=== PATIENT | female | born 1965 | race Hispanic/Latino ===

== ENCOUNTER 2016-09-09 22:30 | Inpatient (IN) | payer OTHER ==
[~2016-09-09] VITALS: Ht 162.6 cm; Wt 104.1 kg
[~2016-09-09 22:30] MED LIST changes: -ATIVAN2 MG PO; -ATORVASTATIN CA40 MG PO; -CARVEDILOL6.25 MG PO; -CELEXA20 MG PO; -GABAPENTIN800 MG PO; -GLUCOTROL10 MG PO; -HYDRALAZINE HCL50 MG PO; -LO-DOSE ASPIRIN81 M2 PO; -LORAZEPAM1 MG PO; -LOSARTAN POTASS50 MG PO; -NEURONTIN800 MG PO; -NIFEDIPINE ER90 MG PO; -PLAVIX75 MG PO; -PROCARDIA XL90 MG PO; -RENA-VITE RX T1 EACH PO; -RENAL-VITE TAB0.8 MG PO; -SENSIPAR; -SENSIPAR30 MG PO
[2016-09-09 23:46] LABS: MCH 27.5 PG (29.0-34.0); MCHC 30.8 G/DL (30.0-36.0); MCV 89.3 FL (83-99); MEAN PLAT.VOLUME 11.4 uM^3 (9.5-12.4); NRBC (%) 0.2 /100 WBC (0-0); PLATELET COUNT 246 K/uL (156-360); RBC DIS.WIDTH-SD 57.8 % (39-53); RED BLOOD COUNT 4.03 M/uL (3.80-5.20); WHITE BLOOD COUNT 9.2 K/uL (4.1-10.2)
[2016-09-09] MEDS ORDERED: GLUCOTROL10 MG PO (23:57)
[2016-09-09 23:58] LABS: CHLORIDE 98 mEq/L (99-109); POTASSIUM 3.6 mEq/L (3.7-5.4); SODIUM 138 mEq/L (136-147)
[2016-09-09] MEDS ORDERED: SENSIPAR (23:58)
[2016-09-09] MEDS ORDERED: PROCARDIA XL90 MG PO (23:58)
[2016-09-09] MEDS ORDERED: APRESOLINE50 MG PO (23:59)
[2016-09-09] MEDS ORDERED: RENVELA800 MG PO (23:59)
[2016-09-10] LABS: GLUCOSE 223 mg/dL (70-99)
[2016-09-10] MEDS ORDERED: RENA-VITE RX T1 EACH PO
[2016-09-10 00:01] LABS: ANION GAP 17 MEQ/L (2-14)
[2016-09-10] MEDS ORDERED: ATIVAN2 MG PO ×3 (00:01→15:35)
[2016-09-10 00:02] LABS: TOTAL BILIRUBIN 0.7 mg/dL (0.0-1.0)
[2016-09-10] MEDS ORDERED: NEURONTIN800 MG PO (00:02)
[2016-09-10] MEDS ORDERED: CELEXA20 MG PO (00:02)
[2016-09-10 00:03] LABS: ALKALINE PHOSPHATASE 506 IU/L (3-129)
[2016-09-10 00:04] LABS: GFR ESTIMATE (CALCULATED) 9 mL/min/
[2016-09-10 00:05] LABS: UREA NITROGEN (BUN) 65 mg/dL (9-23)
[2016-09-10 00:05] LABS: INTER. NORMALIZED RATIO 1.1; PROTHROMBIN TIME 11.1 (9.2-11.2)
[2016-09-10 00:07] LABS: LIPASE 26 U/L (1.0-51.0)
[2016-09-10 00:08] LABS: TROP-I INTERPRETATION NEGATIVE; TROPONIN-I 0.01 ng/mL (0.0-0.30)
[2016-09-10 03:26] LABS: BASE EXCESS -1.8 mEq/L (-3 to +3); BICARBONATE 24.3 mEq/L (22-26); CARBOXY HGB 3.7 % (0-5); COMMENTS - BLOOD GASES A+C+; DEVICE HFNC; METHEMOGLOBIN 0.9 % (0-1.5); O2 FLOW 10 L/MIN; PCO2 46 mm Hg (35-45); PO2 64 mm Hg (80-100); SITE RR; pH 7.33 (7.35-7.45)
[2016-09-10 03:27] LABS: TOTAL RESP RATE 26 resp/min
[2016-09-10 06:22] LABS: CHLORIDE 103 mEq/L (99-109); POTASSIUM 4.2 mEq/L (3.7-5.4); SODIUM 140 mEq/L (136-147)
[2016-09-10 06:23] LABS: MAGNESIUM 2.4 mg/dL (1.3-2.7)
[2016-09-10 06:25] LABS: GLUCOSE 206 mg/dL (70-99)
[2016-09-10 06:26] LABS: ANION GAP 17 MEQ/L (2-14)
[2016-09-10 06:27] LABS: TOTAL BILIRUBIN 0.8 mg/dL (0.0-1.0)
[2016-09-10 06:28] LABS: ALKALINE PHOSPHATASE 474 IU/L (3-129)
[2016-09-10 06:29] LABS: GFR ESTIMATE (CALCULATED) 9 mL/min/
[2016-09-10 06:30] LABS: UREA NITROGEN (BUN) 68 mg/dL (9-23)
[2016-09-10 06:34] LABS: TROP-I INTERPRETATION NEGATIVE; TROPONIN-I 0.07 ng/mL (0.0-0.30)
[2016-09-10 07:04] LABS: HDL CHOLESTEROL 94 MG/DL (Desirable>=50); LDL CHOLESTEROL 93 mg/dL (Desirable<100); NON-HDL CHOLESTEROL 119 mg/dL (Desirable<160); TOTAL CHOLESTEROL 213 mg/dL (Desirable<200); TRIGLYCERIDES 132 MG/DL (Normal: <150)
[2016-09-10 07:36] LABS: BASE EXCESS -2.4 mEq/L (-3 to +3); BICARBONATE 23.7 mEq/L (22-26); CARBOXY HGB 2.5 % (0-5); METHEMOGLOBIN 0.6 % (0-1.5); PCO2 46 mm Hg (35-45); PO2 167 mm Hg (80-100); pH 7.32 (7.35-7.45)
[2016-09-10 07:37] LABS: DEVICE VENT; FI02 100 %; MODE SPONT; PEEP 8 CM/H20; PRES. SUPPORT 10 CM/H2O; TOTAL RESP RATE 23 resp/min
[2016-09-10 12:17] LABS: AHBS INDEX 339.73; HBSG INDEX 0.19
[2016-09-10 12:37] LABS: HEPATITIS B SURFACE ANTIBODY REACTIVE
[2016-09-10] MEDS ORDERED: GLIPIZIDE10 MG PO (15:31)
[2016-09-10] MEDS ORDERED: NIFEDIPINE ER90 MG PO (15:31)
[2016-09-10] MEDS ORDERED: SENSIPAR30 MG PO (15:32)
[2016-09-10] MEDS ORDERED: RENVELA800 MG PO (15:32)
[2016-09-10] MEDS ORDERED: LASIX40 MG PO (15:32)
[2016-09-10] MEDS ORDERED: HYDRALAZINE HCL50 MG PO (15:32)
[2016-09-10] MEDS ORDERED: LO-DOSE ASPIRIN81 M2 PO (15:33)
[2016-09-10] MEDS ORDERED: GABAPENTIN800 MG PO (15:33)
[2016-09-10] MEDS ORDERED: PLAVIX75 MG PO ×2 (15:33)
[2016-09-10] MEDS ORDERED: RENAL-VITE TAB0.8 MG PO (15:33)
[2016-09-10] MEDS ORDERED: CITALOPRAM HBR20 MG PO (15:33)
[2016-09-10] MEDS ORDERED: LORAZEPAM1 MG PO (15:35)
[2016-09-10 17:45] LABS: BASOPHIL COUNT 0.1 K/uL (0-0.1); EOSINOPHIL (%) 1.1 % (0-5); EOSINOPHIL COUNT 0.1 K/uL (0-0.3); HEMATOCRIT 36.6 % (36.0-46.0); IMMATURE GRANULOCYTE (%) 0.3 % (0.0-0.7); INSTRUMENT ABS NEUTROPHIL CT 8.5 K/uL; LYMPHOCYTE COUNT 0.7 K/uL (1.0-2.8); MCH 27.8 PG (29.0-34.0); MCHC 30.9 G/DL (30.0-36.0); MCV 90.1 FL (83-99); MONOCYTE (%) 5.8 % (3-12); MONOCYTE COUNT 0.6 K/uL (0-0.8); NEUTROPHIL (%) 85.4 % (45-76); NEUTROPHIL COUNT 8.5 K/uL (1.8-6.4); PLATELET COUNT 256 K/uL (156-360); RBC DIS.WIDTH-CV 18.1 % (11.8-14.6); RBC DIS.WIDTH-SD 59.1 % (39-53); RED BLOOD COUNT 4.06 M/uL (3.80-5.20); WHITE BLOOD COUNT 9.9 K/uL (4.1-10.2)
[2016-09-10 18:06] LABS: TROP-I INTERPRETATION NEGATIVE; TROPONIN-I 0.13 ng/mL (0.0-0.30)
[2016-09-10 18:50] VITALS: BP 174/84
[2016-09-10 19:00] VITALS: BP 157/75
[2016-09-10 20:00] VITALS: BP 163/108
[2016-09-10 20:43] LABS: METH RESISTANT S AUREUS PCR NEGATIVE (NEGATIVE)
[2016-09-10 20:45] LABS: POINT-OF-CARE METER ID UU14174217
[2016-09-10 20:47] LABS: PROBE CHECK PASS; SPECIMEN PROCESSING CONTROL PASS
[2016-09-10 21:00] VITALS: BP 159/70
[2016-09-10 22:00] VITALS: BP 158/64
[2016-09-11] VITALS (7 sets, daily range): BP systolic 119–168; BP diastolic 49–84
[2016-09-11 01:28] LABS: POINT-OF-CARE METER ID UU13113748
[2016-09-11 06:29] LABS: EOSINOPHIL (%) 0 % (0-5); HEMATOCRIT 34.8 % (36.0-46.0); IMMATURE GRANULOCYTE (%) 0.8 % (0.0-0.7); IMMATURE GRANULOCYTE COUNT 0.1 K/uL; INSTRUMENT ABS NEUTROPHIL CT 7.3 K/uL; LYMPHOCYTE COUNT 0.4 K/uL (1.0-2.8); MCH 27.9 PG (29.0-34.0); MCHC 30.7 G/DL (30.0-36.0); MCV 90.6 FL (83-99); MEAN PLAT.VOLUME 11.8 uM^3 (9.5-12.4); MONOCYTE (%) 1.9 % (3-12); MONOCYTE COUNT 0.2 K/uL (0-0.8); NEUTROPHIL (%) 92.8 % (45-76); NEUTROPHIL COUNT 7.3 K/uL (1.8-6.4); PLATELET COUNT 250 K/uL (156-360); RBC DIS.WIDTH-CV 17.9 % (11.8-14.6); RBC DIS.WIDTH-SD 58.5 % (39-53); RED BLOOD COUNT 3.84 M/uL (3.80-5.20); WHITE BLOOD COUNT 7.9 K/uL (4.1-10.2)
[2016-09-11 06:37] LABS: POINT-OF-CARE METER ID UU13113731
[2016-09-11 06:51] LABS: ANION GAP 15 MEQ/L (2-14); CHLORIDE 98 MEQ/L (99-109); GFR ESTIMATE (CALCULATED) 12 mL/min/; GLUCOSE 290 mg/dL (70-99); MAGNESIUM 2.2 mg/dl (1.3-2.7); POTASSIUM 4.9 MEQ/L (3.7-5.4); SAMPLE HEMOLYSIS CHECK 0; SAMPLE ICTERIC CHECK 0; SAMPLE LIPEMIA CHECK 0; SODIUM 139 MEQ/L (136-147); UREA NITROGEN (BUN) 44 mg/dL (9-23)
[2016-09-12] VITALS: BP 146/75
[2016-09-12 03:52] VITALS: BP 136/71
[2016-09-12 06:22] LABS: EOSINOPHIL (%) 0 % (0-5); HEMATOCRIT 33.6 % (36.0-46.0); IMMATURE GRANULOCYTE (%) 0.4 % (0.0-0.7); INSTRUMENT ABS NEUTROPHIL CT 6.3 K/uL; LYMPHOCYTE COUNT 0.3 K/uL (1.0-2.8); MCH 27.7 PG (29.0-34.0); MCV 89.4 FL (83-99); MEAN PLAT.VOLUME 11.8 uM^3 (9.5-12.4); MONOCYTE (%) 4.4 % (3-12); MONOCYTE COUNT 0.3 K/uL (0-0.8); NEUTROPHIL (%) 90.7 % (45-76); NEUTROPHIL COUNT 6.3 K/uL (1.8-6.4); PLATELET COUNT 215 K/uL (156-360); RBC DIS.WIDTH-CV 17.5 % (11.8-14.6); RBC DIS.WIDTH-SD 56.9 % (39-53); RED BLOOD COUNT 3.76 M/uL (3.80-5.20)
[2016-09-12 06:55] LABS: ANION GAP 16 MEQ/L (2-14); CHLORIDE 93 MEQ/L (99-109); MAGNESIUM 2.4 mg/dl (1.3-2.7); POTASSIUM 5.7 MEQ/L (3.7-5.4); SAMPLE HEMOLYSIS CHECK 0; SAMPLE ICTERIC CHECK 0; SAMPLE LIPEMIA CHECK 0
[2016-09-12 06:57] LABS: GLUCOSE 416 mg/dL (70-99)
[2016-09-12 07:02] LABS: GFR ESTIMATE (CALCULATED) 8 mL/min/; SODIUM 132 MEQ/L (136-147); UREA NITROGEN (BUN) 75 mg/dL (9-23)
[2016-09-12 08:08] VITALS: BP 132/61
[2016-09-12 09:40] LABS: POINT-OF-CARE METER ID UU13113731
[2016-09-12 16:07] VITALS: BP 149/69
[2016-09-12 19:45] VITALS: BP 135/66
[2016-09-13 00:02] VITALS: BP 142/65
[2016-09-13 03:30] VITALS: BP 133/71
[2016-09-13 05:32] LABS: EOSINOPHIL (%) 0.1 % (0-5); HEMATOCRIT 34.1 % (36.0-46.0); IMMATURE GRANULOCYTE (%) 0.4 % (0.0-0.7); INSTRUMENT ABS NEUTROPHIL CT 5.7 K/uL; LYMPHOCYTE COUNT 0.8 K/uL (1.0-2.8); MCH 27.4 PG (29.0-34.0); MCHC 31.4 G/DL (30.0-36.0); MCV 87.2 FL (83-99); MONOCYTE (%) 8.3 % (3-12); MONOCYTE COUNT 0.6 K/uL (0-0.8); NEUTROPHIL (%) 79.9 % (45-76); NEUTROPHIL COUNT 5.7 K/uL (1.8-6.4); PLATELET COUNT 221 K/uL (156-360); RBC DIS.WIDTH-CV 17.2 % (11.8-14.6); RBC DIS.WIDTH-SD 54.4 % (39-53); RED BLOOD COUNT 3.91 M/uL (3.80-5.20); WHITE BLOOD COUNT 7.2 K/uL (4.1-10.2)
[2016-09-13 06:00] LABS: ANION GAP 15 MEQ/L (2-14); CHLORIDE 92 MEQ/L (99-109); GFR ESTIMATE (CALCULATED) 13 mL/min/; GLUCOSE 190 mg/dL (70-99); POTASSIUM 4.1 MEQ/L (3.7-5.4); SAMPLE HEMOLYSIS CHECK 0; SAMPLE ICTERIC CHECK 0; SAMPLE LIPEMIA CHECK 0; SODIUM 135 MEQ/L (136-147); UREA NITROGEN (BUN) 48 mg/dL (9-23)
[2016-09-13 08:11] VITALS: BP 187/87
[2016-09-13] MEDS ORDERED: NICOTINE PATCH1 EAC2 TD (11:11)
[2016-09-13] MEDS ORDERED: CARVEDILOL6.25 MG PO (11:12)
[2016-09-13] MEDS ORDERED: ATORVASTATIN CA40 MG PO (11:12)
[2016-09-13] MEDS ORDERED: LOSARTAN POTASS50 MG PO (11:12)
[2016-09-13] MEDS ORDERED: LASIX40 MG PO (11:13)
== END 2016-09-13 12:46 | disposition home or self-care (01) | DRG 190 ==
LOC: EME 22:30 → EDOF 09-10 02:38 → 4WEST 09-10 03:40 → EDOF 09-10 14:51 → 4WEST 09-10 18:24 → 5SOUTH 09-11 14:29
PROVIDERS: Emergency Medicine; Hospitalist; Internal Medicine Nephrology; Physician Assistant Medical
PROC: 5A1D60Z (ICD-10-PCS; principal; 2016-09-10)
DX: J44.0 Chronic obstructive pulmonary disease with (acute) lower respiratory infection (principal); J96.01 Acute respiratory failure with hypoxia; I50.33 Acute on chronic diastolic (congestive) heart failure; I27.2 Other secondary pulmonary hypertension; J18.9 Pneumonia, unspecified organism; N18.6 End stage renal disease; I31.3 Pericardial effusion (noninflammatory); E11.22 Type 2 diabetes mellitus with diabetic chronic kidney disease; E11.65 Type 2 diabetes mellitus with hyperglycemia; I15.0 Renovascular hypertension; D63.1 Anemia in chronic kidney disease; I13.2 Hypertensive heart and chronic kidney disease with heart failure and with stage 5 chronic kidney disease, or end stage renal disease; E66.01 Morbid (severe) obesity due to excess calories; E78.5 Hyperlipidemia, unspecified; E87.5 Hyperkalemia; F17.218 Nicotine dependence, cigarettes, with other nicotine-induced disorders; F41.9 Anxiety disorder, unspecified; I08.1 Rheumatic disorders of both mitral and tricuspid valves; I16.1 Hypertensive emergency; I25.10 Atherosclerotic heart disease of native coronary artery without angina pectoris; I25.2 Old myocardial infarction; I70.0 Atherosclerosis of aorta; R16.0 Hepatomegaly, not elsewhere classified; J44.1 Chronic obstructive pulmonary disease with (acute) exacerbation; K21.9 Gastro-esophageal reflux disease without esophagitis; K44.9 Diaphragmatic hernia without obstruction or gangrene; M19.90 Unspecified osteoarthritis, unspecified site; N25.81 Secondary hyperparathyroidism of renal origin; N28.1 Cyst of kidney, acquired; T38.0X5A Adverse effect of glucocorticoids and synthetic analogues, initial encounter; Z68.41 Body mass index [BMI] 40.0-44.9, adult; Z79.4 Long term (current) use of insulin; Z82.49 Family history of ischemic heart disease and other diseases of the circulatory system; Z83.3 Family history of diabetes mellitus; Z95.5 Presence of coronary angioplasty implant and graft; Z99.2 Dependence on renal dialysis; I16.0 Hypertensive urgency; J96.22 Acute and chronic respiratory failure with hypercapnia; E83.39 Other disorders of phosphorus metabolism; E11.69 Type 2 diabetes mellitus with other specified complication
CPT/HCPCS: 36600; 71010; 71275; 80048; 80053; 80061; 82565; 82803; 82948; 83605; 83690; 83735; 83880; 84100; 84484; 84520; 85025; 85027; 85610; 85730; 86706; 87040; 87340; 87641; 93005; 93306; 94002; 94640; 94640 76; 94760; 94799; 99202; 99281; 99285; J0360; J0456; J0696; J0881; J1270; J1644; J1815; J1940; J2920; J2930; J7050; J7512

== ENCOUNTER → 2016-09-09 | Outpatient (CLI) | payer OTHER ==
[~2016-09-09] MED LIST: APRESOLINE50 MG PO; ASPIR-LOW81 MG PO; ATIVAN2 MG PO; ATORVASTATIN CA20 MG PO; ATORVASTATIN CA40 MG PO; CARVEDILOL6.25 MG PO; CELEXA20 MG PO; CITALOPRAM HBR20 MG PO; CLONAZEPAM1 MG PO; CLOPIDOGREL75 MG PO; GABAPENTIN800 MG PO; GLIPIZIDE10 MG PO; GLUCOTROL10 MG PO; HUMALOG100 UNIT/1 SC; HUMULIN 70100 UNIT/2 SC; HYDRALAZINE HCL50 MG PO; LANSOPRAZOLE30 MG PO; LASIX40 MG PO; LO-DOSE ASPIRIN81 M2 PO; LORAZEPAM1 MG PO; LOSARTAN POTASS50 MG PO; METOPROLOL TART50 MG PO; NEURONTIN800 MG PO; NICOTINE PATCH1 EAC2 TD; NIFEDIPINE ER90 MG PO; NITROSTAT0.4 MG SL; PHENYTOIN SODI100 M1 PO; PLAVIX75 MG PO; PRAVASTATIN SOD80 MG PO; PROCARDIA XL90 MG PO; PROVENTIL,2.5 MG/3 M IH; RANITIDINE HCL300 MG PO; RENA-VITE RX T1 EACH PO; RENAL-VITE TAB0.8 MG PO; RENVELA800 MG PO; ROBITUSSIN DM118 ML PO; SENSIPAR; SENSIPAR30 MG PO; Sodium Bicarbonate PO; TYLENOL EXTRA500 MG PO
== END | disposition home or self-care (01) ==
LOC: RES 12:11
DX: J98.4 Other disorders of lung (principal); R94.2 Abnormal results of pulmonary function studies
CPT/HCPCS: 94060; 94727; 94729

== ENCOUNTER 2016-11-01 05:34 | Day surgery (SDC) | payer OTHER ==
[~2016-11-01] VITALS: Ht 162.6 cm; Wt 104.3 kg
[~2016-11-01 05:34] MED LIST changes: +ATIVAN2 MG PO; +ATORVASTATIN CA40 MG PO; +CARVEDILOL6.25 MG PO; +CELEXA20 MG PO; +CHANTIX0.5 MG PO; +GABAPENTIN800 MG PO; +GLUCOTROL10 MG PO; +HYDRALAZINE HCL50 MG PO; +LO-DOSE ASPIRIN81 M2 PO; +LORAZEPAM1 MG PO; +LOSARTAN POTASS50 MG PO; +NEURONTIN800 MG PO; +NIFEDIPINE ER90 MG PO; +PLAVIX75 MG PO; +PROCARDIA XL90 MG PO; +RENA-VITE RX T1 EACH PO; +RENAL-VITE TAB0.8 MG PO; +SENSIPAR; +SENSIPAR30 MG PO
[2016-11-01 06:23] LABS: HEMATOCRIT 38.4 % (36.0-46.0); MCH 26.9 PG (29.0-34.0); MCHC 31.8 G/DL (30.0-36.0); MCV 84.8 FL (83-99); MEAN PLAT.VOLUME 11.8 uM^3 (9.5-12.4); PLATELET COUNT 205 K/uL (156-360); RBC DIS.WIDTH-SD 49.1 % (39-53); RED BLOOD COUNT 4.53 M/uL (3.80-5.20); WHITE BLOOD COUNT 6.5 K/uL (4.1-10.2)
[2016-11-01 06:29] VITALS: BP 170/79
[2016-11-01 06:44] LABS: ANION GAP 12 MEQ/L (2-14); CHLORIDE 97 MEQ/L (99-109); POTASSIUM 4.5 MEQ/L (3.7-5.4); SAMPLE HEMOLYSIS CHECK 1; SAMPLE ICTERIC CHECK 0; SAMPLE LIPEMIA CHECK 0; SODIUM 138 MEQ/L (136-147)
[2016-11-01 06:49] LABS: GFR ESTIMATE (CALCULATED) 13 mL/min/; GLUCOSE 109 mg/dL (70-99); UREA NITROGEN (BUN) 36 mg/dL (9-23)
[2016-11-01 08:57] LABS: POINT-OF-CARE METER ID UU13113675
[2016-11-01 10:00] VITALS: BP 163/79
[2016-11-01 10:44] VITALS: BP 142/70
== END 2016-11-01 10:49 | disposition home or self-care (01) ==
LOC: SDC 05:34
PROVIDERS: Surgery
DX: T82.858A Stenosis of other vascular prosthetic devices, implants and grafts, initial encounter (principal); I12.9 Hypertensive chronic kidney disease with stage 1 through stage 4 chronic kidney disease, or unspecified chronic kidney disease; E11.22 Type 2 diabetes mellitus with diabetic chronic kidney disease; N18.9 Chronic kidney disease, unspecified; Z99.2 Dependence on renal dialysis; I25.2 Old myocardial infarction; Z79.4 Long term (current) use of insulin; M19.90 Unspecified osteoarthritis, unspecified site; Z79.82 Long term (current) use of aspirin; Z79.84 Long term (current) use of oral hypoglycemic drugs; F17.200 Nicotine dependence, unspecified, uncomplicated; E66.9 Obesity, unspecified; Z68.34 Body mass index [BMI] 34.0-34.9, adult
CPT/HCPCS: 80048; 82948; 85027; C1725; C1769; C1887; C1894; J0690; J1644; J2250; J2405; J3010

== ENCOUNTER 2017-02-04 15:07 | Inpatient (IN) | payer OTHER ==
[~2017-02-04] VITALS: Ht 162.6 cm; Wt 99.9 kg
[2017-02-04 15:46] LABS: HEMATOCRIT 23.5 % (36.0-46.0); MCH 27.5 PG (29.0-34.0); MCHC 31.1 G/DL (30.0-36.0); MCV 88.7 FL (83-99); MEAN PLAT.VOLUME 9.8 uM^3 (9.5-12.4); PLATELET COUNT 269 K/uL (156-360); RBC DIS.WIDTH-CV 19.8 % (11.8-14.6); RBC DIS.WIDTH-SD 63.4 % (39-53); RED BLOOD COUNT 2.65 M/uL (3.80-5.20); WHITE BLOOD COUNT 11.6 K/uL (4.1-10.2)
[2017-02-04 15:54] LABS: CHLORIDE 92 mEq/L (99-109); POTASSIUM 4.1 mEq/L (3.7-5.4); SODIUM 141 mEq/L (136-147)
[2017-02-04 15:56] LABS: GLUCOSE 294 mg/dL (70-99)
[2017-02-04 15:57] LABS: ANION GAP 15 MEQ/L (2-14)
[2017-02-04 15:59] LABS: GFR ESTIMATE (CALCULATED) 16 mL/min/
[2017-02-04 16:00] LABS: UREA NITROGEN (BUN) 28 mg/dL (9-23)
[2017-02-04 16:06] LABS: TROP-I INTERPRETATION NEGATIVE; TROPONIN-I 0.02 ng/mL (0.0-0.30)
[2017-02-04] MEDS ORDERED: CHANTIX1 MG PO (17:38)
[2017-02-04] MEDS ORDERED: LIPITOR80 MG PO (17:39)
[2017-02-04] MEDS ORDERED: RENAL-VITE TAB0.8 MG PO (17:41)
[2017-02-04] MEDS ORDERED: FUROSEMIDE40 MG PO (17:41)
[2017-02-04] MEDS ORDERED: COREG12.5 M1 PO (17:41)
[2017-02-04] MEDS ORDERED: SENSIPAR60 MG PO (17:42)
[2017-02-04] MEDS ORDERED: LASIX40 MG PO (17:42)
[2017-02-04] MEDS ORDERED: PROAIR HFA8.5 GM IH (17:42)
[2017-02-04] MEDS ORDERED: TRESIBA FL200 UNIT/1 SC (17:43)
[2017-02-04] MEDS ORDERED: BUPROPION HCL150 M2 PO (17:43)
[2017-02-04] MEDS ORDERED: NICODERM CQ1 EAC1 TD (17:45)
[2017-02-04] MEDS ORDERED: HUMALOG100 UNIT/1 SC (17:45)
[2017-02-04 19:35] VITALS: BP 132/65
[2017-02-04 20:43] LABS: POINT-OF-CARE METER ID UU14208750
[2017-02-04 22:07] LABS: TROP-I INTERPRETATION NEGATIVE; TROPONIN-I 0.14 ng/mL (0.0-0.30)
[2017-02-04 23:22] VITALS: BP 128/62
[2017-02-05] VITALS (7 sets, daily range): BP systolic 105–155; BP diastolic 51–72
[2017-02-05 04:28] LABS: HEMATOCRIT 22.5 % (36.0-46.0); MCH 27.8 PG (29.0-34.0); MCHC 31.1 G/DL (30.0-36.0); MCV 89.3 FL (83-99); MEAN PLAT.VOLUME 10.8 uM^3 (9.5-12.4); NRBC (%) 0.1 /100 WBC (0-0); PLATELET COUNT 284 K/uL (156-360); RBC DIS.WIDTH-CV 19.7 % (11.8-14.6); RBC DIS.WIDTH-SD 63.5 % (39-53); RED BLOOD COUNT 2.52 M/uL (3.80-5.20); WHITE BLOOD COUNT 16.4 K/uL (4.1-10.2)
[2017-02-05 04:52] LABS: CHLORIDE 90 mEq/L (99-109); SODIUM 137 mEq/L (136-147)
[2017-02-05 04:53] LABS: TROP-I INTERPRETATION NEGATIVE; TROPONIN-I 0.26 ng/mL (0.0-0.30)
[2017-02-05 04:54] LABS: GLUCOSE 311 mg/dL (70-99); POTASSIUM 5.1 mEq/L (3.7-5.4)
[2017-02-05 04:55] LABS: ANION GAP 18 MEQ/L (2-14)
[2017-02-05 04:58] LABS: GFR ESTIMATE (CALCULATED) 12 mL/min/
[2017-02-05 05:04] LABS: UREA NITROGEN (BUN) 44 mg/dL (9-23)
[2017-02-05 06:36] LABS: POINT-OF-CARE METER ID UU14208750
[2017-02-05 07:16] LABS: Estimated Average Glucose 220 mg/dL (70-123); HEMOGLOBIN A1c (GLYCOHEMOGLOB) 9.3 % HGB (Below 5.7)
[2017-02-05 16:00] LABS: POINT-OF-CARE METER ID UU14208750
[2017-02-05 16:51] LABS: IRON 27 MCG/DL (35-150)
[2017-02-05 18:28] LABS: BASE EXCESS 3.3 mEq/L (-3 to +3); BICARBONATE 27.9 mEq/L (22-26); CARBOXY HGB 2.1 % (0-5); METHEMOGLOBIN 1.4 % (0-1.5); PCO2 42 mm Hg (35-45); PO2 49 mm Hg (80-100); SITE RB; pH 7.43 (7.35-7.45)
[2017-02-05 18:34] LABS: DEVICE HFNC; O2 FLOW 15 L/MIN
[2017-02-05 18:35] LABS: TOTAL RESP RATE 22 resp/min
[2017-02-05 19:17] LABS: COMMENTS - BLOOD GASES C+
[2017-02-05 19:32] LABS: TROP-I INTERPRETATION NEGATIVE; TROPONIN-I 0.21 ng/mL (0.0-0.30)
[2017-02-06] VITALS (7 sets, daily range): BP systolic 110–127; BP diastolic 55–60
[2017-02-06 06:41] LABS: POINT-OF-CARE METER ID UU14208750
[2017-02-06 07:02] LABS: MCH 27.5 PG (29.0-34.0); MCHC 30.6 G/DL (30.0-36.0); MEAN PLAT.VOLUME 10.9 uM^3 (9.5-12.4); NRBC (%) 0.2 /100 WBC (0-0); PLATELET COUNT 257 K/uL (156-360); RBC DIS.WIDTH-CV 19.8 % (11.8-14.6); RBC DIS.WIDTH-SD 64.1 % (39-53); WHITE BLOOD COUNT 11.4 K/uL (4.1-10.2)
[2017-02-06 07:23] LABS: TROP-I INTERPRETATION NEGATIVE; TROPONIN-I 0.16 ng/mL (0.0-0.30)
[2017-02-06 07:48] LABS: ANION GAP 14 MEQ/L (2-14); CHLORIDE 87 MEQ/L (99-109); GLUCOSE 325 mg/dL (70-99); SAMPLE HEMOLYSIS CHECK 0; SAMPLE ICTERIC CHECK 0; SAMPLE LIPEMIA CHECK 0; VANCOMYCIN, TROUGH 21.8 MCG/ML (10-20)
[2017-02-06 07:55] LABS: UREA NITROGEN (BUN) 89 mg/dL (9-23)
[2017-02-06 07:56] LABS: GFR ESTIMATE (CALCULATED) 8 mL/min/; POTASSIUM 6.7 MEQ/L (3.7-5.4); SODIUM 128 MEQ/L (136-147)
[2017-02-06 08:29] LABS: INTERNAL CONTROL VALID? YES
[2017-02-06 09:27] LABS: IMM.RETIC FRACTION 38.4 % (3-19); RETIC HGB EQUIVALENT 25.2 (28-36); RETICULOCYTE COUNT 6.4 % (0.5-1.8)
[2017-02-06 10:15] LABS: POINT-OF-CARE METER ID UU14208750
[2017-02-06 10:15] LABS: POINT-OF-CARE METER ID UU14208750
[2017-02-06 11:18] LABS: IRON 127 MCG/DL (35-150)
[2017-02-06 11:41] LABS: POINT-OF-CARE METER ID UU14208750
[2017-02-06 12:54] LABS: FERRITIN 885 NG/ML (10-291); LACTATE DEHYDROGENASE 171 IU/L (20-246)
[2017-02-06 18:19] LABS: POINT-OF-CARE METER ID UU14208750
[2017-02-06 19:25] LABS: ALKALINE PHOSPHATASE 154 IU/L (3-129); ANION GAP 15 MEQ/L (2-14); CHLORIDE 94 MEQ/L (99-109); GLUCOSE 238 mg/dL (70-99); SAMPLE HEMOLYSIS CHECK 0; SAMPLE ICTERIC CHECK 0; SAMPLE LIPEMIA CHECK 0; TOTAL BILIRUBIN 0.9 MG/DL (0.0-1.0)
[2017-02-06 19:28] LABS: EOSINOPHIL (%) 0 % (0-5); HEMATOCRIT 25.1 % (36.0-46.0); IMMATURE GRANULOCYTE (%) 0.9 % (0.0-0.7); IMMATURE GRANULOCYTE COUNT 0.1 K/uL; INSTRUMENT ABS NEUTROPHIL CT 10.1 K/uL; LYMPHOCYTE COUNT 0.4 K/uL (1.0-2.8); MCH 27.9 PG (29.0-34.0); MCHC 32.3 G/DL (30.0-36.0); MCV 86.6 FL (83-99); MEAN PLAT.VOLUME 10.9 uM^3 (9.5-12.4); MONOCYTE (%) 3.6 % (3-12); MONOCYTE COUNT 0.4 K/uL (0-0.8); NEUTROPHIL (%) 91.6 % (45-76); NEUTROPHIL COUNT 10.1 K/uL (1.8-6.4); NRBC (%) 0.8 /100 WBC (0-0); PLATELET COUNT 273 K/uL (156-360); RBC DIS.WIDTH-CV 18.6 % (11.8-14.6); RBC DIS.WIDTH-SD 57.2 % (39-53)
[2017-02-06 19:31] LABS: GFR ESTIMATE (CALCULATED) 19 mL/min/; POTASSIUM 3.8 MEQ/L (3.7-5.4); SODIUM 136 MEQ/L (136-147); UREA NITROGEN (BUN) 35 mg/dL (9-23)
[2017-02-06 21:30] LABS: POINT-OF-CARE METER ID UU14162508
[2017-02-07 03:28] VITALS: BP 124/63
[2017-02-07 06:42] LABS: EOSINOPHIL (%) 0 % (0-5); HEMATOCRIT 25.3 % (36.0-46.0); IMMATURE GRANULOCYTE (%) 1.3 % (0.0-0.7); IMMATURE GRANULOCYTE COUNT 0.2 K/uL; INSTRUMENT ABS NEUTROPHIL CT 11.2 K/uL; LYMPHOCYTE COUNT 0.7 K/uL (1.0-2.8); MCH 27.1 PG (29.0-34.0); MCHC 31.2 G/DL (30.0-36.0); MCV 86.9 FL (83-99); MEAN PLAT.VOLUME 10.8 uM^3 (9.5-12.4); MONOCYTE (%) 5.8 % (3-12); MONOCYTE COUNT 0.7 K/uL (0-0.8); NEUTROPHIL COUNT 11.2 K/uL (1.8-6.4); NRBC (%) 1.3 /100 WBC (0-0); PLATELET COUNT 271 K/uL (156-360); RBC DIS.WIDTH-CV 19.3 % (11.8-14.6); RBC DIS.WIDTH-SD 58.9 % (39-53); RED BLOOD COUNT 2.91 M/uL (3.80-5.20); WHITE BLOOD COUNT 12.8 K/uL (4.1-10.2)
[2017-02-07 06:58] LABS: POINT-OF-CARE METER ID UU14162508
[2017-02-07 07:14] LABS: ANION GAP 15 MEQ/L (2-14); CHLORIDE 94 MEQ/L (99-109); GLUCOSE 156 mg/dL (70-99); SAMPLE HEMOLYSIS CHECK 0; SAMPLE ICTERIC CHECK 0; SAMPLE LIPEMIA CHECK 0; SODIUM 136 MEQ/L (136-147); UREA NITROGEN (BUN) 50 mg/dL (9-23)
[2017-02-07 07:15] LABS: GFR ESTIMATE (CALCULATED) 12 mL/min/; POTASSIUM 4.6 MEQ/L (3.7-5.4)
[2017-02-07 07:22] VITALS: BP 124/71
[2017-02-07 11:58] VITALS: BP 132/77
[2017-02-07 12:29] LABS: POINT-OF-CARE METER ID UU14162508
[2017-02-07 15:40] VITALS: BP 134/69
[2017-02-07 17:08] LABS: POINT-OF-CARE METER ID UU14162508
[2017-02-07 19:00] VITALS: BP 143/66
[2017-02-08 00:04] VITALS: BP 122/85
[2017-02-08 01:31] LABS: POINT-OF-CARE METER ID UU14162508; POINT-OF-CARE USER ID AHSUCEG
[2017-02-08 04:00] VITALS: BP 125/74
[2017-02-08 07:26] LABS: EOSINOPHIL (%) 0 % (0-5); HEMATOCRIT 25.3 % (36.0-46.0); IMMATURE GRANULOCYTE COUNT 0.2 K/uL; INSTRUMENT ABS NEUTROPHIL CT 9.6 K/uL; LYMPHOCYTE COUNT 1.1 K/uL (1.0-2.8); MCHC 31.6 G/DL (30.0-36.0); MCV 88.5 FL (83-99); MEAN PLAT.VOLUME 10.8 uM^3 (9.5-12.4); MONOCYTE (%) 10.9 % (3-12); MONOCYTE COUNT 1.3 K/uL (0-0.8); NEUTROPHIL (%) 78.2 % (45-76); NEUTROPHIL COUNT 9.6 K/uL (1.8-6.4); PLATELET COUNT 276 K/uL (156-360); RBC DIS.WIDTH-CV 19.5 % (11.8-14.6); RBC DIS.WIDTH-SD 59.9 % (39-53); RED BLOOD COUNT 2.86 M/uL (3.80-5.20); WHITE BLOOD COUNT 12.3 K/uL (4.1-10.2)
[2017-02-08 07:30] VITALS: BP 105/59
[2017-02-08 07:56] LABS: ANION GAP 19 MEQ/L (2-14); CHLORIDE 89 MEQ/L (99-109); GFR ESTIMATE (CALCULATED) 8 mL/min/; GLUCOSE 324 mg/dL (70-99); POTASSIUM 4.8 MEQ/L (3.7-5.4); SAMPLE HEMOLYSIS CHECK 0; SAMPLE ICTERIC CHECK 0; SAMPLE LIPEMIA CHECK 0; SODIUM 130 MEQ/L (136-147); UREA NITROGEN (BUN) 83 mg/dL (9-23); VANCOMYCIN, TROUGH 12.7 MCG/ML (10-20)
[2017-02-08 14:30] LABS: POINT-OF-CARE METER ID UU14162508
[2017-02-08 15:21] LABS: POINT-OF-CARE METER ID UU14162508
[2017-02-08 16:00] VITALS: BP 132/64
[2017-02-08 19:58] VITALS: BP 132/65
[2017-02-08 21:19] LABS: POINT-OF-CARE METER ID UU14314084
[2017-02-09 00:12] VITALS: BP 127/58
[2017-02-09 07:05] LABS: POINT-OF-CARE METER ID UU14314084
[2017-02-09 08:00] VITALS: BP 135/60
[2017-02-09 11:58] LABS: POINT-OF-CARE METER ID UU14208750
[2017-02-09 12:27] VITALS: BP 148/70
[2017-02-09 16:05] VITALS: BP 178/77
[2017-02-09 16:38] LABS: ANION GAP 13 MEQ/L (2-14); CHLORIDE 90 MEQ/L (99-109); POTASSIUM 5.3 MEQ/L (3.7-5.4); SAMPLE HEMOLYSIS CHECK 0; SAMPLE ICTERIC CHECK 0; SAMPLE LIPEMIA CHECK 1; SODIUM 128 MEQ/L (136-147)
[2017-02-09 17:00] LABS: GFR ESTIMATE (CALCULATED) 9 mL/min/; UREA NITROGEN (BUN) 71 mg/dL (9-23)
[2017-02-09 17:01] LABS: GLUCOSE 607 mg/dL (70-99)
[2017-02-09 20:09] VITALS: BP 159/73
[2017-02-09 23:06] LABS: POINT-OF-CARE METER ID UU14314084
[2017-02-09 23:35] VITALS: BP 145/65
[2017-02-10 03:44] LABS: POINT-OF-CARE METER ID UU14162508
[2017-02-10 04:18] VITALS: BP 135/60
[2017-02-10 06:36] LABS: POINT-OF-CARE METER ID UU14162508
[2017-02-10 07:06] LABS: HEMATOCRIT 28.1 % (36.0-46.0); MCH 27.9 PG (29.0-34.0); MCHC 31.3 G/DL (30.0-36.0); MCV 89.2 FL (83-99); MEAN PLAT.VOLUME 10.7 uM^3 (9.5-12.4); NRBC (%) 2.4 /100 WBC (0-0); PLATELET COUNT 356 K/uL (156-360); RBC DIS.WIDTH-CV 18.9 % (11.8-14.6); RBC DIS.WIDTH-SD 57.1 % (39-53); RED BLOOD COUNT 3.15 M/uL (3.80-5.20); WHITE BLOOD COUNT 14.7 K/uL (4.1-10.2)
[2017-02-10 07:33] LABS: ANION GAP 14 MEQ/L (2-14); CHLORIDE 96 MEQ/L (99-109); GFR ESTIMATE (CALCULATED) 8 mL/min/; POTASSIUM 4.4 MEQ/L (3.7-5.4); SAMPLE HEMOLYSIS CHECK 0; SAMPLE ICTERIC CHECK 0; SAMPLE LIPEMIA CHECK 0; UREA NITROGEN (BUN) 87 mg/dL (9-23)
[2017-02-10 07:41] LABS: GLUCOSE 118 mg/dL (70-99); SODIUM 136 MEQ/L (136-147)
[2017-02-10 07:45] VITALS: BP 152/69
[2017-02-10 11:46] LABS: POINT-OF-CARE METER ID UU14162508
[2017-02-10 11:55] LABS: POINT-OF-CARE METER ID UU14162508
[2017-02-10 12:05] VITALS: BP 123/60
[2017-02-10 15:54] VITALS: BP 150/72
[2017-02-10 16:42] LABS: POINT-OF-CARE METER ID UU14162508
[2017-02-10 19:38] VITALS: BP 145/68
[2017-02-11 00:22] VITALS: BP 125/60
[2017-02-11 04:11] VITALS: BP 125/58
[2017-02-11 06:03] LABS: POINT-OF-CARE METER ID UU14162508
[2017-02-11 08:37] LABS: HEMATOCRIT 25.8 % (36.0-46.0); MCH 27.3 PG (29.0-34.0); MCV 88.1 FL (83-99); MEAN PLAT.VOLUME 10.6 uM^3 (9.5-12.4); NRBC (%) 1.1 /100 WBC (0-0); PLATELET COUNT 346 K/uL (156-360); RBC DIS.WIDTH-CV 19.6 % (11.8-14.6); RBC DIS.WIDTH-SD 56.4 % (39-53); RED BLOOD COUNT 2.93 M/uL (3.80-5.20); WHITE BLOOD COUNT 13.2 K/uL (4.1-10.2)
[2017-02-11 08:46] LABS: POINT-OF-CARE METER ID UU14162508; POINT-OF-CARE USER ID AHSUCEG
[2017-02-11 08:46] LABS: POINT-OF-CARE METER ID UU14162508; POINT-OF-CARE USER ID AHSUCEG
[2017-02-11 08:53] LABS: ANION GAP 16 MEQ/L (2-14); CHLORIDE 97 MEQ/L (99-109); GFR ESTIMATE (CALCULATED) 7 mL/min/; POTASSIUM 4.4 MEQ/L (3.7-5.4); SAMPLE HEMOLYSIS CHECK 0; SAMPLE ICTERIC CHECK 0; SAMPLE LIPEMIA CHECK 0; SODIUM 133 MEQ/L (136-147)
[2017-02-11 09:05] LABS: GLUCOSE 206 mg/dL (70-99)
[2017-02-11 09:07] LABS: UREA NITROGEN (BUN) 105 mg/dL (9-23)
[2017-02-11 09:11] LABS: ABS NEUTROPHIL COUNT 10.9; BAND NEUTROPHILS 0.9 % (0-8.0); EOSINOPHIL ABS CT 0.2; EOSINOPHILS 1.8 % (0-5.0); INSTRUMENT ABS NEUTROPHIL CT 8.9 K/uL; LYMPHOCYTES 11.5 % (15.0-45.0); MYELOCYTES 1.8 %; SEG.NEUTROPHILS 81.4 % (46.0-76.0); SMUDGE CELLS 9.7
[2017-02-11 12:51] VITALS: BP 144/71
[2017-02-11 13:06] LABS: POINT-OF-CARE METER ID UU14162508
[2017-02-11] MEDS ORDERED: DUONEB 2.5-0.5 M3 ML AEROSOL (13:52)
[2017-02-11] MEDS ORDERED: PREDNISONE20 MG PO (13:55)
[2017-02-11] MEDS ORDERED: ADVAIR HFA120 INHAL1 IH (13:55)
[2017-02-11] MEDS ORDERED: CALCIUM ACETAT667 MG PO (13:57)
== END 2017-02-11 15:20 | disposition home or self-care (01) | DRG 193 ==
LOC: EME 15:07 → 2EAST 16:47 → EDOF 16:47 → ENRESERV 16:55 → 2EAST 19:30
PROVIDERS: Family Medicine; Internal Medicine; Internal Medicine Cardiovascular Disease
PROC: 5A1D70Z Performance of Urinary Filtration, Intermittent, Less than 6 Hours Per Day (ICD-10-PCS; principal; 2017-02-06)
PROC: 30233N1 Transfusion of Nonautologous Red Blood Cells into Peripheral Vein, Percutaneous Approach (ICD-10-PCS; 2017-02-06)
DX: J15.9 Unspecified bacterial pneumonia (principal); J96.01 Acute respiratory failure with hypoxia; J44.0 Chronic obstructive pulmonary disease with (acute) lower respiratory infection; J44.1 Chronic obstructive pulmonary disease with (acute) exacerbation; E87.5 Hyperkalemia; E11.65 Type 2 diabetes mellitus with hyperglycemia; T38.0X5A Adverse effect of glucocorticoids and synthetic analogues, initial encounter; I13.2 Hypertensive heart and chronic kidney disease with heart failure and with stage 5 chronic kidney disease, or end stage renal disease; I50.9 Heart failure, unspecified; E11.22 Type 2 diabetes mellitus with diabetic chronic kidney disease; N18.6 End stage renal disease; N25.81 Secondary hyperparathyroidism of renal origin; D63.1 Anemia in chronic kidney disease; D50.9 Iron deficiency anemia, unspecified; I25.10 Atherosclerotic heart disease of native coronary artery without angina pectoris; E78.5 Hyperlipidemia, unspecified; K21.9 Gastro-esophageal reflux disease without esophagitis; G40.909 Epilepsy, unspecified, not intractable, without status epilepticus; F32.9 Major depressive disorder, single episode, unspecified; F41.9 Anxiety disorder, unspecified; F17.200 Nicotine dependence, unspecified, uncomplicated; E66.01 Morbid (severe) obesity due to excess calories; I25.2 Old myocardial infarction; Z99.2 Dependence on renal dialysis; Z95.5 Presence of coronary angioplasty implant and graft; Z99.81 Dependence on supplemental oxygen; Z79.82 Long term (current) use of aspirin; Z79.02 Long term (current) use of antithrombotics/antiplatelets; Z68.37 Body mass index [BMI] 37.0-37.9, adult
CPT/HCPCS: 36600; 71010; 71020; 71275; 80048; 80053; 80069; 80202; 82040; 82272; 82607; 82728; 82746; 82803; 82948; 83010 90; 83036; 83540; 83615; 84100; 84466; 84484; 84999; 85025; 85027; 85045; 86850; 86900; 86901; 86920; 87040; 87070; 87205; 87340; 87449; 93005; 94640; 94640 76; 94667; 94668; 94760; 94799; 99202; 99281; 99284; J0295; J0456; J0692; J0696; J0881; J1270; J1644; J1756; J1815; J1940; J2270; J2920; J3370; J3475; J7050; J7512; P9016

== ENCOUNTER 2017-02-18 14:01 | Inpatient (IN) | payer OTHER ==
[~2017-02-18] VITALS: Ht 304.8 cm; Wt 105.0 kg
[2017-02-18] VITALS (7 sets, daily range): BP systolic 125–144; BP diastolic 61–87
[~2017-02-18 14:01] MED LIST changes: +ADVAIR HFA120 INHAL1 IH; +BUPROPION HCL150 M2 PO; +CALCIUM ACETAT667 MG PO; +CHANTIX1 MG PO; +COREG12.5 M1 PO; +DUONEB 2.5-0.5 M3 ML AEROSOL; +FUROSEMIDE40 MG PO; +LIPITOR80 MG PO; +NICODERM CQ1 EAC1 TD; +PREDNISONE20 MG PO; +PROAIR HFA8.5 GM IH; +SENSIPAR60 MG PO; +TRESIBA FL200 UNIT/1 SC
[2017-02-18 15:21] LABS: INTER. NORMALIZED RATIO 1.1
[2017-02-18 15:23] LABS: EOSINOPHIL (%) 1.2 % (0-5); EOSINOPHIL COUNT 0.1 K/uL (0-0.3); HEMATOCRIT 21.9 % (36.0-46.0); IMMATURE GRANULOCYTE (%) 0.7 % (0.0-0.7); IMMATURE GRANULOCYTE COUNT 0.1 K/uL; INSTRUMENT ABS NEUTROPHIL CT 8.3 K/uL; LYMPHOCYTE COUNT 1.3 K/uL (1.0-2.8); MCH 28.2 PG (29.0-34.0); MCHC 30.6 G/DL (30.0-36.0); MONOCYTE (%) 7.6 % (3-12); MONOCYTE COUNT 0.8 K/uL (0-0.8); NEUTROPHIL (%) 78.1 % (45-76); NEUTROPHIL COUNT 8.3 K/uL (1.8-6.4); NRBC (%) 0.2 /100 WBC (0-0); PLATELET COUNT 250 K/uL (156-360); RBC DIS.WIDTH-CV 20.2 % (11.8-14.6); RBC DIS.WIDTH-SD 66.8 % (39-53); RED BLOOD COUNT 2.38 M/uL (3.80-5.20); WHITE BLOOD COUNT 10.7 K/uL (4.1-10.2)
[2017-02-18 15:24] LABS: CHLORIDE 95 mEq/L (99-109); POTASSIUM 4.4 mEq/L (3.7-5.4); PTT 28.4 SEC (25-37); SODIUM 142 mEq/L (136-147)
[2017-02-18 15:26] LABS: GLUCOSE 161 mg/dL (70-99)
[2017-02-18 15:27] LABS: ANION GAP 12 MEQ/L (2-14)
[2017-02-18 15:28] LABS: TOTAL BILIRUBIN 0.6 mg/dL (0.0-1.0)
[2017-02-18 15:30] LABS: ALKALINE PHOSPHATASE 165 IU/L (3-129); GFR ESTIMATE (CALCULATED) 19 mL/min/
[2017-02-18 15:31] LABS: UREA NITROGEN (BUN) 25 mg/dL (9-23)
[2017-02-18 18:43] LABS: TROP-I INTERPRETATION NEGATIVE; TROPONIN-I 0.02 ng/mL (0.0-0.30)
[2017-02-18] MEDS ORDERED: CALCIUM ACETAT667 MG PO (20:18)
[2017-02-18] MEDS ORDERED: RENVELA800 MG PO ×2 (20:19)
[2017-02-18 22:35] LABS: HEMATOCRIT 21.8 % (36.0-46.0); MCH 28.1 PG (29.0-34.0); MCHC 31.2 G/DL (30.0-36.0); MCV 90.1 FL (83-99); MEAN PLAT.VOLUME 11.4 uM^3 (9.5-12.4); PLATELET COUNT 207 K/uL (156-360); RBC DIS.WIDTH-CV 20.8 % (11.8-14.6); RED BLOOD COUNT 2.42 M/uL (3.80-5.20); WHITE BLOOD COUNT 10.1 K/uL (4.1-10.2)
[2017-02-19] VITALS (9 sets, daily range): BP systolic 112–141; BP diastolic 59–81
[2017-02-19 00:31] LABS: POINT-OF-CARE METER ID UU14174216
[2017-02-19 02:54] LABS: HEMATOCRIT 23.9 % (36.0-46.0); MCV 89.2 FL (83-99)
[2017-02-19 03:17] LABS: TROP-I INTERPRETATION NEGATIVE; TROPONIN-I 0.02 ng/mL (0.0-0.30)
[2017-02-19 05:57] LABS: POINT-OF-CARE METER ID UU14314088
[2017-02-19 07:08] LABS: HEMATOCRIT 23.5 % (36.0-46.0)
[2017-02-19 07:26] LABS: INTER. NORMALIZED RATIO 1.2; PROTHROMBIN TIME 13.4 SEC (10.2-12.9)
[2017-02-19 07:29] LABS: PTT 29.4 SEC (25-37)
[2017-02-19 07:36] LABS: ANION GAP 11 MEQ/L (2-14); CHLORIDE 94 MEQ/L (99-109); GLUCOSE 180 mg/dL (70-99); POTASSIUM 4.5 MEQ/L (3.7-5.4); SAMPLE HEMOLYSIS CHECK 0; SAMPLE ICTERIC CHECK 0; SAMPLE LIPEMIA CHECK 0; SODIUM 140 MEQ/L (136-147)
[2017-02-19 07:37] LABS: GFR ESTIMATE (CALCULATED) 14 mL/min/; UREA NITROGEN (BUN) 46 mg/dL (9-23)
[2017-02-19 08:34] LABS: TROP-I INTERPRETATION NEGATIVE; TROPONIN-I 0.03 ng/mL (0.0-0.30)
[2017-02-19 13:12] LABS: POINT-OF-CARE METER ID UU14314088
[2017-02-19 13:47] LABS: HEMATOCRIT 31.8 % (36.0-46.0); MCV 89.1 FL (83-99)
[2017-02-19 16:08] LABS: POINT-OF-CARE METER ID UU14314088; POINT-OF-CARE USER ID ENVKC36
[2017-02-19 18:27] LABS: POINT-OF-CARE METER ID UU13113698
[2017-02-19 21:10] LABS: POINT-OF-CARE METER ID UU14314088
[2017-02-20 05:52] VITALS: BP 130/69
[2017-02-20 07:37] LABS: POINT-OF-CARE METER ID UU13113698
[2017-02-20 08:15] VITALS: BP 121/80
[2017-02-20 09:15] LABS: HEMATOCRIT 27.8 % (36.0-46.0); MCH 28.8 PG (29.0-34.0); MCHC 32.4 G/DL (30.0-36.0); MCV 89.1 FL (83-99); MEAN PLAT.VOLUME 11.4 uM^3 (9.5-12.4); PLATELET COUNT 183 K/uL (156-360); RBC DIS.WIDTH-CV 18.6 % (11.8-14.6); RBC DIS.WIDTH-SD 57.6 % (39-53); WHITE BLOOD COUNT 8.4 K/uL (4.1-10.2)
[2017-02-20 09:20] LABS: RED BLOOD COUNT 3.12 M/uL (3.80-5.20)
[2017-02-20 09:33] LABS: ANION GAP 13 MEQ/L (2-14); CHLORIDE 91 MEQ/L (99-109); POTASSIUM 5.1 MEQ/L (3.7-5.4); SAMPLE HEMOLYSIS CHECK 0; SAMPLE ICTERIC CHECK 0; SAMPLE LIPEMIA CHECK 0; UREA NITROGEN (BUN) 63 mg/dL (9-23)
[2017-02-20 09:34] LABS: GFR ESTIMATE (CALCULATED) 9 mL/min/; GLUCOSE 339 mg/dL (70-99); SODIUM 131 MEQ/L (136-147)
[2017-02-20 10:19] LABS: LACTATE DEHYDROGENASE 167 IU/L (20-246)
[2017-02-20 10:37] LABS: ANISOCYTOSIS 1+; HEMATOLOGY COMMENT 1 SN; MICROCYTOSIS 1+; PLAT.SUFFICIENCY ADEQUATE; POLYCHROMASIA 1+
[2017-02-20 10:41] LABS: ATYPICAL LYMPHOCYTE 0.9 %; BASOPHILS 0.9 %; EOSINOPHIL ABS CT 0; INSTRUMENT ABS NEUTROPHIL CT 6.4 K/uL; LYMPHOCYTES 8.8 % (15.0-45.0); SEG.NEUTROPHILS 83.3 % (46.0-76.0); SMUDGE CELLS 0.9
[2017-02-20 13:21] VITALS: BP 132/62
[2017-02-20 17:01] VITALS: BP 151/69
[2017-02-20 19:30] VITALS: BP 137/67
[2017-02-20 23:00] VITALS: BP 146/66
[2017-02-21 03:30] VITALS: BP 122/59
[2017-02-21 05:15] LABS: HEMATOCRIT 32.1 % (36.0-46.0); MCH 28.3 PG (29.0-34.0); MCHC 31.8 G/DL (30.0-36.0); MCV 89.2 FL (83-99); MEAN PLAT.VOLUME 11.1 uM^3 (9.5-12.4); PLATELET COUNT 231 K/uL (156-360); RBC DIS.WIDTH-CV 17.5 % (11.8-14.6); RBC DIS.WIDTH-SD 55.3 % (39-53); WHITE BLOOD COUNT 7.7 K/uL (4.1-10.2)
[2017-02-21 07:33] VITALS: BP 146/69
[2017-02-21 08:07] LABS: POINT-OF-CARE METER ID UU13113781
[2017-02-21 12:05] VITALS: BP 130/64
[2017-02-21 17:04] VITALS: BP 146/67
[2017-02-21 17:40] LABS: GLUCOSE 748 mg/dL (70-99)
[2017-02-21 18:53] LABS: ANION GAP 15 MEQ/L (2-14); CHLORIDE 86 MEQ/L (99-109); GFR ESTIMATE (CALCULATED) 8 mL/min/; POTASSIUM 5.6 MEQ/L (3.7-5.4); SAMPLE HEMOLYSIS CHECK 0; SAMPLE ICTERIC CHECK 0; SAMPLE LIPEMIA CHECK 0; UREA NITROGEN (BUN) 68 mg/dL (9-23)
[2017-02-21 18:54] LABS: GLUCOSE 889 mg/dL (70-99); SODIUM 123 MEQ/L (136-147)
[2017-02-21 19:15] VITALS: BP 134/60
[2017-02-21 21:02] LABS: BASE EXCESS -0.2 mEq/L (-3 to +3); BICARBONATE 23.8 mEq/L (22-26); CARBOXY HGB 2.5 % (0-5); COMMENTS - BLOOD GASES A+C+; FI02 21 %; METHEMOGLOBIN 0.8 % (0-1.5); PCO2 35 mm Hg (35-45); SITE RR; pH 7.44 (7.35-7.45)
[2017-02-21 21:49] LABS: ANION GAP 20 MEQ/L (2-14); CHLORIDE 87 MEQ/L (99-109); GFR ESTIMATE (CALCULATED) 8 mL/min/; GLUCOSE 720 mg/dL (70-99); POTASSIUM 5.6 MEQ/L (3.7-5.4); SAMPLE HEMOLYSIS CHECK 1; SAMPLE ICTERIC CHECK 0; SAMPLE LIPEMIA CHECK 0; SODIUM 123 MEQ/L (136-147); UREA NITROGEN (BUN) 69 mg/dL (9-23)
[2017-02-21 23:00] VITALS: BP 132/63
[2017-02-22 00:50] LABS: CHLORIDE 92 mEq/L (99-109); POTASSIUM 5.2 mEq/L (3.7-5.4); SODIUM 127 mEq/L (136-147)
[2017-02-22 00:53] LABS: ANION GAP 15 MEQ/L (2-14)
[2017-02-22 00:55] LABS: GFR ESTIMATE (CALCULATED) 7 mL/min/
[2017-02-22 00:56] LABS: UREA NITROGEN (BUN) 71 mg/dL (9-23)
[2017-02-22 00:57] LABS: GLUCOSE 495 mg/dL (70-99)
[2017-02-22 03:00] VITALS: BP 127/62
[2017-02-22 03:01] LABS: POINT-OF-CARE METER ID UU13113698
[2017-02-22 06:03] LABS: POINT-OF-CARE METER ID UU13113698
[2017-02-22 07:51] LABS: EOSINOPHIL (%) 1.1 % (0-5); EOSINOPHIL COUNT 0.1 K/uL (0-0.3); HEMATOCRIT 28.1 % (36.0-46.0); IMMATURE GRANULOCYTE (%) 0.4 % (0.0-0.7); INSTRUMENT ABS NEUTROPHIL CT 7.6 K/uL; LYMPHOCYTE COUNT 1.1 K/uL (1.0-2.8); MCH 28.8 PG (29.0-34.0); MCHC 32.4 G/DL (30.0-36.0); MCV 88.9 FL (83-99); MONOCYTE (%) 6.8 % (3-12); MONOCYTE COUNT 0.7 K/uL (0-0.8); NEUTROPHIL (%) 79.7 % (45-76); NEUTROPHIL COUNT 7.6 K/uL (1.8-6.4); PLATELET COUNT 204 K/uL (156-360); RBC DIS.WIDTH-CV 17.2 % (11.8-14.6); RBC DIS.WIDTH-SD 55.2 % (39-53); RED BLOOD COUNT 3.16 M/uL (3.80-5.20); WHITE BLOOD COUNT 9.6 K/uL (4.1-10.2)
[2017-02-22 08:22] LABS: ANION GAP 16 MEQ/L (2-14); CHLORIDE 93 MEQ/L (99-109); GFR ESTIMATE (CALCULATED) 8 mL/min/; GLUCOSE 288 mg/dL (70-99); POTASSIUM 4.9 MEQ/L (3.7-5.4); SAMPLE HEMOLYSIS CHECK 0; SAMPLE ICTERIC CHECK 0; SAMPLE LIPEMIA CHECK 0; SODIUM 131 MEQ/L (136-147); UREA NITROGEN (BUN) 75 mg/dL (9-23)
[2017-02-22 11:29] LABS: POINT-OF-CARE METER ID UU13113698
[2017-02-22 11:50] VITALS: BP 150/69
[2017-02-23 21:46] LABS: POINT-OF-CARE METER ID UU14174216
[2017-02-23 21:46] LABS: POINT-OF-CARE METER ID UU13113781
[2017-02-23 21:46] LABS: POINT-OF-CARE METER ID UU13113781
[2017-02-23 21:46] LABS: POINT-OF-CARE METER ID UU13113698
[2017-02-23 21:46] LABS: POINT-OF-CARE METER ID UU14314088
[2017-02-23 21:48] LABS: POINT-OF-CARE METER ID UU14314088
[2017-02-23 21:50] LABS: POINT-OF-CARE METER ID UU14314088
[2017-02-24 12:56] LABS: POC NON-PRINT COM 1 ND
== END 2017-02-22 16:16 | disposition home or self-care (01) | DRG 377 ==
LOC: EME 14:01 → EDOF 21:54 → 4EAST 21:54 → ENRESERV 21:57 → 4EAST 23:49 → ENRESERV 02-19 17:43 → 4EAST 02-20 15:36
PROVIDERS: Emergency Medicine; Hospitalist; Internal Medicine; Internal Medicine Nephrology; Student in an Organized Health Care Education/Training Program
PROC: 30253P1 (ICD-10-PCS; principal; 2017-02-18)
PROC: 0DB68ZX Excision of Stomach, Via Natural or Artificial Opening Endoscopic, Diagnostic (ICD-10-PCS; 2017-02-19)
PROC: 5A1D70Z Performance of Urinary Filtration, Intermittent, Less than 6 Hours Per Day (ICD-10-PCS; 2017-02-19)
DX: K92.2 Gastrointestinal hemorrhage, unspecified (principal); N18.6 End stage renal disease; D62 Acute posthemorrhagic anemia; D63.8 Anemia in other chronic diseases classified elsewhere; E11.22 Type 2 diabetes mellitus with diabetic chronic kidney disease; E78.5 Hyperlipidemia, unspecified; E66.01 Morbid (severe) obesity due to excess calories; I13.2 Hypertensive heart and chronic kidney disease with heart failure and with stage 5 chronic kidney disease, or end stage renal disease; I50.9 Heart failure, unspecified; Z99.2 Dependence on renal dialysis; Z91.15 Patient's noncompliance with renal dialysis; K29.70 Gastritis, unspecified, without bleeding; F32.9 Major depressive disorder, single episode, unspecified; F41.9 Anxiety disorder, unspecified; E87.3 Alkalosis; E83.51 Hypocalcemia; E87.5 Hyperkalemia; I25.118 Atherosclerotic heart disease of native coronary artery with other forms of angina pectoris; I25.2 Old myocardial infarction; J44.9 Chronic obstructive pulmonary disease, unspecified; Z99.81 Dependence on supplemental oxygen; Z95.5 Presence of coronary angioplasty implant and graft; Z91.11 Patient's noncompliance with dietary regimen; K21.9 Gastro-esophageal reflux disease without esophagitis; E11.65 Type 2 diabetes mellitus with hyperglycemia; D50.9 Iron deficiency anemia, unspecified; N25.81 Secondary hyperparathyroidism of renal origin; F17.200 Nicotine dependence, unspecified, uncomplicated; J44.0 Chronic obstructive pulmonary disease with (acute) lower respiratory infection; J18.9 Pneumonia, unspecified organism
CPT/HCPCS: 36600; 71010; 71250; 80048; 80048 91; 80053; 80069; 82010; 82272; 82803; 82948; 83010 90; 83615; 83880; 84484; 84999; 85007; 85014; 85018; 85025; 85025 91; 85027; 85060; 85610; 85730; 86850; 86900; 86901; 86920; 87040; 87070; 87205; 87449; 88305; 88342 TC; 93005; 94640; 94640 76; 94760; 94799; 99202; 99281; 99285; C9113; J0456; J0692; J0881; J1644; J1756; J1815; J1940; J7030; J7512; P9016

== ENCOUNTER → 2017-03-21 | Outpatient (CLI) | payer OTHER | END | disposition home or self-care (01) | LOC: NUC 03-12 14:00 | DX: R09.02 Hypoxemia (principal); J98.4 Other disorders of lung | CPT/HCPCS: 71020; 78582; A9540; A9567 ==

== ENCOUNTER 2017-04-02 11:55 | Inpatient (IN) | payer OTHER ==
[~2017-04-02] VITALS: Ht 167.6 cm; Wt 109.1 kg
[~2017-04-02 11:55] MED LIST changes: -LORAZEPAM1 MG PO; -SENSIPAR60 MG PO
[2017-04-02 14:08] LABS: BASE EXCESS 4.9 mEq/L (-3 to +3); BICARBONATE 29.9 mEq/L (22-26); PO2 55 mm Hg (80-100); pH 7.43 (7.35-7.45)
[2017-04-02 14:09] LABS: COMMENTS - BLOOD GASES C+; PCO2 45 mm Hg (35-45); SITE RB
[2017-04-02 14:10] LABS: DEVICE VENT; FI02 50 %
[2017-04-02 14:11] LABS: CONTINUOUS POS AIRWAY PRESSURE 5 cm H2O; MODE SPONT.; PRES. SUPPORT 20 CM/H2O; TOTAL RESP RATE 28 resp/min
[2017-04-02 14:13] LABS: BASOPHIL (%) 0.4 % (0-1); BASOPHIL COUNT 0.1 K/uL (0-0.1); EOSINOPHIL (%) 2.8 % (0-5); EOSINOPHIL COUNT 0.3 K/uL (0-0.3); HEMATOCRIT 34.5 % (36.0-46.0); HEMOGLOBIN 11.2 G/DL (11.9-15.5); IMMATURE GRANULOCYTE (%) 0.4 % (0.0-0.7); LYMPHOCYTE (%) 9.5 % (15-42); LYMPHOCYTE COUNT 1.2 K/uL (1.0-2.8); MCH 28.8 PG (29.0-34.0); MCHC 32.5 G/DL (30.0-36.0); MCV 88.7 FL (83-99); MONOCYTE (%) 6.1 % (3-12); MONOCYTE COUNT 0.8 K/uL (0-0.8); NEUTROPHIL (%) 80.8 % (45-76); NEUTROPHIL COUNT 9.9 K/uL (1.8-6.4); PLATELET COUNT 216 K/uL (156-360); RBC DIS.WIDTH-CV 14.6 % (11.8-14.6); RBC DIS.WIDTH-SD 46.7 % (39-53); RED BLOOD COUNT 3.89 M/uL (3.80-5.20); WHITE BLOOD COUNT 12.3 K/uL (4.1-10.2)
[2017-04-02 14:21] LABS: ALBUMIN 4.2 g/dL (3.2-4.8)
[2017-04-02 14:22] LABS: CHLORIDE 96 mEq/L (99-109); SODIUM 138 mEq/L (136-147)
[2017-04-02 14:24] LABS: GLUCOSE 147 mg/dL (70-99); TOTAL PROTEIN 7.8 g/dL (6.4-8.3)
[2017-04-02 14:26] LABS: TOTAL BILIRUBIN 0.6 mg/dL (0.0-1.0)
[2017-04-02 14:27] LABS: ALKALINE PHOSPHATASE 240 IU/L (3-129)
[2017-04-02 14:28] LABS: CREATININE 6.6 mg/dL (0.6-1.3); GFR ESTIMATE (CALCULATED) 7 mL/min/
[2017-04-02 14:29] LABS: AST (GOT) 15 IU/L (2-34); UREA NITROGEN (BUN) 54 mg/dL (9-23)
[2017-04-02 14:31] LABS: ALT (GPT) 24 IU/L (3-49)
[2017-04-02 14:33] LABS: TROP-I INTERPRETATION NEGATIVE; TROPONIN-I 0.02 ng/mL (0.0-0.30)
[2017-04-02] MEDS ORDERED: HUMALOG100 UNIT/1 SC (17:00)
[2017-04-02] MEDS ORDERED: ERGOCALCIF50000 UNIT PO (17:01)
[2017-04-02] MEDS ORDERED: PLAVIX75 MG PO (17:01)
[2017-04-02] MEDS ORDERED: BESIVANCE5 ML LEFT EYE (18:23)
[2017-04-02] MEDS ORDERED: PROLENSA3 ML LEFT EYE (18:24)
[2017-04-02] MEDS ORDERED: DUREZOL 0.100 DROP/5 LEFT EYE (18:25)
[2017-04-02 22:00] VITALS: BP 137/80
[2017-04-03 02:30] VITALS: BP 112/69
[2017-04-03 04:24] VITALS: BP 122/65
[2017-04-03 06:04] LABS: CHLORIDE 92 MEQ/L (99-109); GFR ESTIMATE (CALCULATED) 10 mL/min/; POTASSIUM 5.7 MEQ/L (3.7-5.4); SODIUM 132 MEQ/L (136-147); UREA NITROGEN (BUN) 39 mg/dL (9-23); VANCOMYCIN, TROUGH 14.3 MCG/ML (10-20)
[2017-04-03 06:07] LABS: CREATININE 4.9 MG/DL (0.6-1.3); GLUCOSE 398 mg/dL (70-99)
[2017-04-03 08:41] VITALS: BP 131/66
[2017-04-03 11:19] LABS: HEPATITIS B SURFACE ANTIGEN Nonreactive
[2017-04-03 11:20] LABS: HEPATITIS B SURFACE ANTIBODY REACTIVE
[2017-04-03 12:04] VITALS: BP 135/65
[2017-04-03 16:51] LABS: BASOPHIL (%) 0.2 % (0-1); EOSINOPHIL (%) 0 % (0-5); HEMATOCRIT 29.7 % (36.0-46.0); HEMOGLOBIN 9.6 G/DL (11.9-15.5); IMMATURE GRANULOCYTE (%) 0.6 % (0.0-0.7); LYMPHOCYTE (%) 5.5 % (15-42); LYMPHOCYTE COUNT 0.6 K/uL (1.0-2.8); MCHC 32.3 G/DL (30.0-36.0); MCV 86.6 FL (83-99); MONOCYTE (%) 4.7 % (3-12); MONOCYTE COUNT 0.5 K/uL (0-0.8); NEUTROPHIL COUNT 10.2 K/uL (1.8-6.4); PLATELET COUNT 206 K/uL (156-360); RBC DIS.WIDTH-CV 14.3 % (11.8-14.6); RBC DIS.WIDTH-SD 45.3 % (39-53); RED BLOOD COUNT 3.43 M/uL (3.80-5.20); WHITE BLOOD COUNT 11.4 K/uL (4.1-10.2)
[2017-04-03 17:01] LABS: ALBUMIN 3.9 G/DL (3.2-4.8); CHLORIDE 88 MEQ/L (99-109); POTASSIUM 5.9 MEQ/L (3.7-5.4); SODIUM 127 MEQ/L (136-147)
[2017-04-03 17:07] LABS: GFR ESTIMATE (CALCULATED) 10 mL/min/; GLUCOSE 496 mg/dL (70-99); PHOSPHORUS 4.8 mg/dL (2.5-4.9); UREA NITROGEN (BUN) 61 mg/dL (9-23)
[2017-04-03 20:45] VITALS: BP 131/60
[2017-04-03 23:45] VITALS: BP 137/64
[2017-04-04] VITALS (9 sets, daily range): BP systolic 124–149; BP diastolic 57–76
[2017-04-05 03:53] VITALS: BP 128/68
[2017-04-05 05:30] LABS: HEMATOCRIT 31.8 % (36.0-46.0); HEMOGLOBIN 10.6 G/DL (11.9-15.5); MCH 28.3 PG (29.0-34.0); MCHC 33.3 G/DL (30.0-36.0); MCV 84.8 FL (83-99); PLATELET COUNT 240 K/uL (156-360); RBC DIS.WIDTH-SD 43.3 % (39-53); RED BLOOD COUNT 3.75 M/uL (3.80-5.20); WHITE BLOOD COUNT 10.7 K/uL (4.1-10.2)
[2017-04-05 06:14] LABS: ALBUMIN 3.7 G/DL (3.2-4.8); CHLORIDE 91 MEQ/L (99-109); CREATININE 5.7 MG/DL (0.6-1.3); GFR ESTIMATE (CALCULATED) 8 mL/min/; GLUCOSE 115 mg/dL (70-99); PHOSPHORUS 5.5 mg/dL (2.5-4.9); POTASSIUM 3.9 MEQ/L (3.7-5.4); SODIUM 134 MEQ/L (136-147); UREA NITROGEN (BUN) 64 mg/dL (9-23)
[2017-04-05 08:12] VITALS: BP 124/62
[2017-04-05 13:17] VITALS: BP 135/71
[2017-04-05] MEDS ORDERED: PREDNISONE10 MG PO (13:45)
== END 2017-04-05 15:43 | disposition home or self-care (01) | DRG 189 ==
LOC: EME 11:55 → 4EAST 14:55 → EDOF 14:55 → ENRESERV 15:03 → 4EAST 21:27 → ENRESERV 04-04 17:45 → 3EAST 04-04 21:27
PROVIDERS: Emergency Medicine; Hospitalist; Internal Medicine
PROC: 5A1D70Z Performance of Urinary Filtration, Intermittent, Less than 6 Hours Per Day (ICD-10-PCS; principal; 2017-04-02)
DX: J96.21 Acute and chronic respiratory failure with hypoxia (principal); I13.2 Hypertensive heart and chronic kidney disease with heart failure and with stage 5 chronic kidney disease, or end stage renal disease; I50.9 Heart failure, unspecified; J44.1 Chronic obstructive pulmonary disease with (acute) exacerbation; E87.5 Hyperkalemia; E87.1 Hypo-osmolality and hyponatremia; E11.21 Type 2 diabetes mellitus with diabetic nephropathy; E11.22 Type 2 diabetes mellitus with diabetic chronic kidney disease; N18.6 End stage renal disease; N25.81 Secondary hyperparathyroidism of renal origin; D63.1 Anemia in chronic kidney disease; E11.65 Type 2 diabetes mellitus with hyperglycemia; T38.0X5A Adverse effect of glucocorticoids and synthetic analogues, initial encounter; K21.9 Gastro-esophageal reflux disease without esophagitis; E78.5 Hyperlipidemia, unspecified; I25.10 Atherosclerotic heart disease of native coronary artery without angina pectoris; I27.20 Pulmonary hypertension, unspecified; F32.9 Major depressive disorder, single episode, unspecified; F41.9 Anxiety disorder, unspecified; G40.909 Epilepsy, unspecified, not intractable, without status epilepticus; D50.9 Iron deficiency anemia, unspecified; E66.01 Morbid (severe) obesity due to excess calories; Z68.37 Body mass index [BMI] 37.0-37.9, adult; I25.2 Old myocardial infarction; Z79.4 Long term (current) use of insulin; Z87.891 Personal history of nicotine dependence; Z95.5 Presence of coronary angioplasty implant and graft; Z99.2 Dependence on renal dialysis; Z99.81 Dependence on supplemental oxygen; Z79.82 Long term (current) use of aspirin
CPT/HCPCS: 36600; 71045; 80048; 80053; 80069; 80202; 82803; 82948; 83605; 83880; 84484; 85025; 85027; 86706; 87040; 87070; 87205; 87340; 87449; 87502; 87641; 93005; 94002; 94640; 94640 76; 94799; 99202; 99281; 99285; J0456; J0692; J1644; J1815; J1956; J2543; J2920; J2930; J3370; J7512

== ENCOUNTER 2017-07-23 13:49 | Emergency (ER) | payer OTHER ==
[~2017-07-23] VITALS: Ht 165.1 cm; Wt 106.8 kg
[~2017-07-23 13:49] MED LIST changes: +BESIVANCE5 ML LEFT EYE; +DUREZOL 0.100 DROP/5 LEFT EYE; +ERGOCALCIF50000 UNIT PO; +PREDNISONE10 MG PO; +PROLENSA3 ML LEFT EYE
[2017-07-23 15:52] LABS: HEMATOCRIT 35.4 % (36.0-46.0); HEMOGLOBIN 11.3 G/DL (11.9-15.5); MCH 27.7 PG (29.0-34.0); MCHC 31.9 G/DL (30.0-36.0); MCV 86.8 FL (83-99); PLATELET COUNT 245 K/uL (156-360); RBC DIS.WIDTH-CV 15.9 % (11.8-14.6); RBC DIS.WIDTH-SD 50.3 % (39-53); RED BLOOD COUNT 4.08 M/uL (3.80-5.20); WHITE BLOOD COUNT 7.6 K/uL (4.1-10.2)
[2017-07-23 16:07] LABS: ALBUMIN 4.3 g/dL (3.2-4.8); CHLORIDE 94 mEq/L (99-109); POTASSIUM 4.3 mEq/L (3.7-5.4); SODIUM 136 mEq/L (136-147)
[2017-07-23 16:09] LABS: GLUCOSE 371 mg/dL (70-99)
[2017-07-23 16:10] LABS: TOTAL PROTEIN 8.1 g/dL (6.4-8.3)
[2017-07-23 16:11] LABS: TOTAL BILIRUBIN 0.8 mg/dL (0.0-1.0)
[2017-07-23 16:13] LABS: ALKALINE PHOSPHATASE 196 IU/L (3-129); CREATININE 4.2 mg/dL (0.6-1.3); GFR ESTIMATE (CALCULATED) 12 mL/min/
[2017-07-23 16:14] LABS: UREA NITROGEN (BUN) 24 mg/dL (9-23)
[2017-07-23 16:15] LABS: AST (GOT) 11 IU/L (2-34)
[2017-07-23 16:16] LABS: ALT (GPT) 12 IU/L (3-49)
[2017-07-23 16:17] LABS: TROP-I INTERPRETATION NEGATIVE; TROPONIN-I 0.02 ng/mL (0.0-0.30)
[2017-07-23] MEDS ORDERED: LEVAQUIN750 MG PO (18:08)
[2017-07-23 18:39] VITALS: BP 142/73
== END 2017-07-23 18:39 | disposition home or self-care (01) ==
LOC: EME 13:49
PROVIDERS: Family Medicine
DX: J18.9 Pneumonia, unspecified organism (principal); R09.02 Hypoxemia; J44.0 Chronic obstructive pulmonary disease with (acute) lower respiratory infection; I13.0 Hypertensive heart and chronic kidney disease with heart failure and stage 1 through stage 4 chronic kidney disease, or unspecified chronic kidney disease; I50.9 Heart failure, unspecified; N18.9 Chronic kidney disease, unspecified; Z99.2 Dependence on renal dialysis; Z87.01 Personal history of pneumonia (recurrent); Z99.81 Dependence on supplemental oxygen; E78.5 Hyperlipidemia, unspecified; I25.2 Old myocardial infarction; K21.9 Gastro-esophageal reflux disease without esophagitis; Z87.891 Personal history of nicotine dependence; F32.9 Major depressive disorder, single episode, unspecified; F41.9 Anxiety disorder, unspecified
CPT/HCPCS: 71046; 80053; 83880; 84484; 85027; 93005; 94640; 99281; 99284

== ENCOUNTER 2017-10-14 17:32 | Day surgery (SDC) | payer OTHER ==
[~2017-10-14] VITALS: Ht 165.1 cm; Wt 106.8 kg
[~2017-10-14 17:32] MED LIST changes: +LEVAQUIN750 MG PO
[2017-10-14 17:59] LABS: HEMATOCRIT 36.6 % (36.0-46.0); HEMOGLOBIN 11.9 G/DL (11.9-15.5); MCV 85.9 FL (83-99)
[2017-10-14 18:10] LABS: CHLORIDE 98 mEq/L (99-109); POTASSIUM 5.7 mEq/L (3.7-5.4); SODIUM 139 mEq/L (136-147)
[2017-10-14 18:12] LABS: GLUCOSE 300 mg/dL (70-99)
[2017-10-14 18:16] LABS: CREATININE 6.7 mg/dL (0.6-1.3); GFR ESTIMATE (CALCULATED) 7 mL/min/; UREA NITROGEN (BUN) 55 mg/dL (9-23)
[2017-10-14 18:45] VITALS: BP 163/74
[2017-10-14 21:15] VITALS: BP 172/68
[2017-10-14 21:55] VITALS: BP 158/74
== END 2017-10-14 22:03 | disposition home or self-care (01) ==
LOC: SDC 17:32
PROVIDERS: Surgery
PROC: 057Y3DZ Dilation of Upper Vein with Intraluminal Device, Percutaneous Approach (ICD-10-PCS; principal; 2017-10-14)
PROC: B51W1ZZ Fluoroscopy of Dialysis Shunt/Fistula using Low Osmolar Contrast (ICD-10-PCS; principal; 2017-10-14)
PROC: 05HY33Z Insertion of Infusion Device into Upper Vein, Percutaneous Approach (ICD-10-PCS; principal; 2017-10-14)
PROC: 3E03317 Introduction of Other Thrombolytic into Peripheral Vein, Percutaneous Approach (ICD-10-PCS; principal; 2017-10-14)
DX: T82.858A Stenosis of other vascular prosthetic devices, implants and grafts, initial encounter (principal); Y83.2 Surgical operation with anastomosis, bypass or graft as the cause of abnormal reaction of the patient, or of later complication, without mention of misadventure at the time of the procedure; I12.0 Hypertensive chronic kidney disease with stage 5 chronic kidney disease or end stage renal disease; E11.22 Type 2 diabetes mellitus with diabetic chronic kidney disease; I73.9 Peripheral vascular disease, unspecified; J44.9 Chronic obstructive pulmonary disease, unspecified; R91.1 Solitary pulmonary nodule; F17.210 Nicotine dependence, cigarettes, uncomplicated; N18.6 End stage renal disease; Z99.2 Dependence on renal dialysis; Z79.4 Long term (current) use of insulin; Z79.82 Long term (current) use of aspirin; Z79.02 Long term (current) use of antithrombotics/antiplatelets; I25.2 Old myocardial infarction
CPT/HCPCS: 71046; 80048; 82948; 85014; 85018; 87641; C1725; C1769; C1874; C1894; J0690; J1644; J2250; J3010